=== PATIENT | male | born 1970 | race Caucasian/White ===

== ENCOUNTER 2016-09-01 14:31 | Emergency (ER) | payer MEDICAID ==
[2016-09-01 14:43] VITALS: TEMP 98.4
--- NOTE | 2016-09-01 15:50 | EDPHY ---
H & P Stated Complaint: ETOH/FOUND DOWN Source: Patient, Police, EMS Exam Limitations: Intoxication - Personal History Current Tetanus/Diphtheria Vaccine: Yes Current Tetanus Diphtheria and Acellular Pertussis (TDAP): Yes Tetanus Vaccine Date: ADM 01/28/12 - Medical/Surgical History Hx Asthma: No Hx Chronic Respiratory Disease: No Hx Diabetes: No Hx Cardiac Disease: Yes Hx Renal Disease: No Hx Cirrhosis: No Hx Alcoholism: Yes Hx HIV/AIDS: No Hx Splenectomy or Spleen Trauma: No Other PMH: HX: ETOH WITHDRAWAL SZ, SDH, HTN, brain surgery after tbi - Social History Smoking Status: Current every day smoker Alcohol Use: Heavy Time Seen by Provider: 09/01/16 14:34 HPI/ROS: CHIEF COMPLAINT: ETOH HISTORY OF PRESENT ILLNESS: 46-year-old male presents emergency department with ambulance and police on an arc hold with alcohol intoxication. Patient is a homeless gentleman well known to EMS and the hospital. Patient was found down unconscious lying on the sidewalk behind a liquor store, police were unable to arouse him so called 911. Upon arrival of EMS the patient awoke loud verbal stimuli and painful stimuli, he reports he drank a half a bottle of alcohol. Patient needed 2 people to assist him onto the ambulance gurney. REVIEW OF SYSTEMS: Unable to obtain due to intoxication (Taryn Banks) - Physical Exam Exam: General Appearance: awake, slurred speech, smells of alcohol. Head: superficial abrasion to right jehovah's witness, right forehead and right ear, no obvious scalp contusion or injury Eyes: Pupils equal, round, reactive to light, EOMI, no trauma, no injection. Ears: Clear bilaterally, no perforation, no hemotympanum Nose: Atraumatic, no rhinorrhea, no septal hematoma Neck: cervical spine no deformity or tenderness on palpation Cardiovascular: Heart is regular rate and rhythm without murmur. Good capillary refill all extremities. Chest: Atraumatic, equal bilateral breath sounds. Chest is non-tender to palpation. Gastrointestinal: Soft, non-tender, non-distended. No rebound, guarding, or peritoneal signs. There is no evidence of external or internal trauma. Back:There is no thoracic or lumbar spine or paraspinal tenderness. Extremities: All extremities are non-tender to palpation without obvious deformity. There is full active range of motion of the joints. Neurological: No facial asymmetry, moves all extremities, follows commands Skin: Superficial abrasions to right ear, right side of nose and forehead ( Taryn Banks) Constitutional: Initial Vital Signs Temperature (C) 36.9 C 09/01/16 14:41 Heart Rate 80 09/01/16 14:41 Respiratory Rate 14 09/01/16 14:41 Blood Pressure 123/83 H 09/01/16 14:41 O2 Sat (%) 96 09/01/16 14:41 O2 Delivery Mode Room Air O2 (L/minute) 2 Allergies/Adverse Reactions: No Known Allergies Allergy (Verified 02/03/15 11:02) Home Medications: Medication Instructions Recorded NK [No Known Home Meds] 08/24/15 Medical Decision Making - Diagnostics Imaging: Discussed imaging studies w/ circular stuffer Radiologist ED Course/Re-evaluation: 46-year-old male found down by police brought in on arc hold. He has abrasions dried blood to the right side of his face. CT head and neck were obtained showing no acute abnormality. I serially examined this patient since the patient's arrival here in the emergency department. The patient continues intoxicated and difficult to arouse with slurred speech. We will continue to monitor him until he is able to be discharged to the [facility]. 1800- attempted to ambulate the patient, he is still too unsteady on his feet. Care transferred to Dr. Vega at the end of my shift. (Taryn Banks) Other Provider: This patient was evaluated and managed by the nurse practitioner. I have reviewed the chart and agree with the findings and plan of care as documented. Patient's care was transferred to al at change of shift. At that time he was somnolent but arousable. He was unable to safely ambulate on his own. With time, he awoke, ambulated independently, ate a bit, and was transferred to the [facility]. (Patt Vega) Care Turn Over: Silvia at 1800 (Taryn Banks) - Data Points Medications Given: Discontinued Medications Chlordiazepoxide (Librium 25 Mg Prepack#6) 1 btl TAKEHOME EDNOW ONE Stop: 09/01/16 19:31 Last Admin: 09/01/16 19:42 Dose: 1 btl Departure - Departure Disposition: Home, Routine, Self-Care Clinical Impression: Alcohol intoxication Qualifiers: Complication of substance-induced condition: uncomplicated Qualified Code(s): F10.120 - Alcohol abuse with intoxication, uncomplicated Condition: Good Instructions: Alcohol Intoxication (ED) Additional Instructions: Stop drinking alcohol. Referrals: [facility] [Outside] - As per Instructions
[2016-09-01 17:50] VITALS: RESP 16
[2016-09-01 19:01] VITALS: O2SAT 92
[2016-09-01] MEDS ORDERED: CHLORDIAZEPOXIDE 25MG PREPK#6 BTL TAKEHOME ONE (19:30)
[2016-09-01 19:42] VITALS: BP 133/91; PULSE 97
== END 2016-09-01 19:54 | disposition home or self-care (01) ==
LOC: EDUNIT#
DX: F10.120 Alcohol abuse with intoxication, uncomplicated (principal); I10 Essential (primary) hypertension; F17.200 Nicotine dependence, unspecified, uncomplicated

== ENCOUNTER 2017-12-12 11:30 | Inpatient (IN) | payer MEDICAID, OTHER ==
[2017-12-12] MEDS ORDERED: ONDANSETRON 4 MG/2 ML VIAL ONE (11:54)
[2017-12-12] MEDS ORDERED: LORazepam 2 MG/ML INJ ONE (11:58)
[2017-12-12] MEDS ORDERED: LORazepam 1 MG TAB PO PRN ×2 (12:07→15:03)
[2017-12-12] MEDS ORDERED: NS 1,000 ML IV ONE (12:07)
[2017-12-12] MEDS ORDERED: LORazepam 2 MG/ML INJ IVP PRN (12:07)
--- NOTE | 2017-12-12 12:07 | EDPHY ---
H & P Stated Complaint: from [facility], ETOH withdrawl Time Seen by Provider: 12/12/17 12:06 HPI/ROS: CHIEF COMPLAINT: Alcohol withdrawal HISTORY OF PRESENT ILLNESS: The patient presents to the ED with alcohol withdrawal. He reports symptoms of tremor, vomiting and restlessness. [facility] and began vomiting today which prompted his transfer to the emergency department. The patient denies any drug use. He denies any history of a recent fall or trauma. He does have a remote history of a subdural hematoma. The patient denies significant medical problems outside of his alcohol dependence. He denies any regular prescription medication usage. He denies any symptoms of fever, cough or congestion. He does complain of some mild abdominal discomfort in his epigastrium. REVIEW OF SYSTEMS: A comprehensive 10 point review of systems is otherwise negative aside from elements mentioned in the history of present illness. Source: Patient Exam Limitations: No limitations - Personal History Current Tetanus/Diphtheria Vaccine: Yes Current Tetanus Diphtheria and Acellular Pertussis (TDAP): Yes Tetanus Vaccine Date: ADM 01/28/12 - Medical/Surgical History Hx Asthma: No Hx Chronic Respiratory Disease: No Hx Diabetes: No Hx Cardiac Disease: Yes Hx Renal Disease: No Hx Cirrhosis: No Hx Alcoholism: Yes Hx HIV/AIDS: No Hx Splenectomy or Spleen Trauma: No Other PMH: HX: ETOH WITHDRAWAL SZ, SDH, HTN, brain surgery after tbi - Social History Smoking Status: Current every day smoker - Physical Exam Exam: General Appearance: Alert, no distress Eyes: Pupils equal and round no pallor or injection ENT, Mouth: Mucous membranes moist Respiratory: There are no retractions, lungs are clear to auscultation Cardiovascular: Regular rate and rhythm Gastrointestinal: Minimal epigastric tenderness to palpation Neurological: A&O, normal motor function, normal sensory exam, normal cranial nerves Skin: Warm and dry, no rashes Musculoskeletal: Neck is supple nontender Extremities: symmetrical, full range of motion Psychiatric: Patient is oriented X 3, there is no agitation Constitutional: Initial Vital Signs Temperature (C) 36.6 C 12/12/17 11:34 Heart Rate 94 12/12/17 11:34 Respiratory Rate 24 H 12/12/17 11:34 Blood Pressure 187/136 H 12/12/17 11:34 O2 Sat (%) 96 12/12/17 11:34 O2 Delivery Mode Room Air Allergies/Adverse Reactions: No Known Allergies Allergy (Verified 12/12/17 11:34) Home Medications: Medication Instructions Recorded NK [No Known Home Meds] 08/24/15 Medical Decision Making ED Course/Re-evaluation: The patient presents the ED with symptoms of alcohol withdrawal from the [facility]. The patient's vital signs are stable. He has minimal epigastric tenderness on exam. The patient had an IV established. His initial see while was 8 on my evaluation. He received 2 mg of Ativan. He received several L of fluid. He received IV Zofran. I re-evaluated the patient at 2:00 p.m.. He was sleeping however when aroused developed tremor, tachycardia and diaphoresis. The patient is given additional 2 mg dose of Ativan. Patient will require admission to the hospital for a CIWA score of 6. Consultation was made with the hospitalist service. The patient will be admitted by Dr. Matta. Differential Diagnosis: Differential diagnosis considered includes alcohol withdrawal seizure, dehydration, metabolic abnormality, pancreatitis - Data Points Laboratory Results: Laboratory Results 12/12/17 11:55 12/12/17 11:55 12/12/17 12/12/17 11:55 11:55 WBC 7.55 10^3/uL 10^3/uL (3.80-9.50) RBC 5.68 10^6/uL 10^6/uL (4.40-6.38) Hgb 16.7 g/dL g/dL (13.7-17.5) Hct 49.2 % % (40.0-51.0) MCV 86.6 fL fL (81.5-99.8) MCH 29.4 pg pg (27.9-34.1) MCHC 33.9 g/dL g/dL (32.4-36.7) RDW 14.0 % % (11.5-15.2) Plt Count 128 10^3/uL L 10^3/uL (150-400) MPV 9.6 fL fL (8.7-11.7) Neut % (Auto) 76.7 % H % (39.3-74.2) Lymph % (Auto) 13.9 % L % (15.0-45.0) Teller % (Auto) 7.4 % % (4.5-13.0) Eos % (Auto) 1.3 % % (0.6-7.6) Baso % (Auto) 0.4 % % (0.3-1.7) Nucleat RBC Rel Count 0.0 % % (0.0-0.2) Absolute Neuts (auto) 5.79 10^3/uL 10^3/uL (1.70-6.50) Absolute Lymphs (auto) 1.05 10^3/uL 10^3/uL (1.00-3.00) Absolute Monos (auto) 0.56 10^3/uL 10^3/uL (0.30-0.80) Absolute Eos (auto) 0.10 10^3/uL 10^3/uL (0.03-0.40) Absolute Basos (auto) 0.03 10^3/uL 10^3/uL (0.02-0.10) Absolute Nucleated RBC 0.00 10^3/uL 10^3/uL (0-0.01) Immature Gran % 0.3 % % (0.0-1.1) Immature Gran # 0.02 10^3/uL 10^3/uL (0.00-0.10) Sodium 141 mEq/L mEq/L (135-145) Potassium 4.2 mEq/L mEq/L (3.3-5.0) Chloride 103 mEq/L mEq/L (97-110) Carbon Dioxide 24 mEq/l mEq/l (22-31) Anion Gap 14 mEq/L mEq/L (8-16) BUN 9 mg/dL mg/dL (7-23) Creatinine 0.6 mg/dL L mg/dL (0.7-1.3) Estimated GFR > 60 Glucose 86 mg/dL mg/dL (70-100) Calcium 8.8 mg/dL mg/dL (8.5-10.4) Total Bilirubin 1.2 mg/dL mg/dL (0.1-1.4) Conjugated Bilirubin 0.1 mg/dL mg/dL (0.0-0.5) Unconjugated Bilirubin 1.1 mg/dL mg/dL (0.0-1.1) AST 63 IU/L H IU/L (17-59) ALT 37 IU/L IU/L (21-72) Alkaline Phosphatase 100 IU/L IU/L (38-126) Total Protein 7.2 g/dL g/dL (6.3-8.2) Albumin 4.4 g/dL g/dL (3.5-5.0) Lipase 157 IU/L IU/L (23-300) Medications Given: Lorazepam (Ativan Injection) 0 mg IVP Q1H PRN; Protocol PRN Reason: Alcohol Withdrawal w/IV access Stop: 12/13/17 00:07 Last Admin: 12/12/17 12:05 Dose: 2 mg Discontinued Medications Sodium Chloride (Ns) 1,000 mls @ 0 mls/hr IV EDNOW ONE; Wide Open PRN Reason: Protocol Stop: 12/12/17 12:08 Last Admin: 12/12/17 12:05 Dose: 1,000 mls Departure - Departure Disposition: [facility] Inpatient Acute Clinical Impression: Alcohol withdrawal syndrome Condition: Fair Referrals: NONE *PRIMARY CARE P,. [Primary Care Provider] - As per Instructions
[2017-12-12 12:22] LABS: PLATELET COUNT 128 10^3/uL (150-400)
[2017-12-12] MEDS ORDERED: LORazepam 2 MG/ML INJ IVP ONE (14:18)
--- NOTE | 2017-12-12 14:31 | CPEKG ---
Test Reason : OPEN Blood Pressure : / mmHG Vent. Rate : 076 BPM Atrial Rate : 075 BPM P-R Int : 166 ms QRS Dur : 092 ms QT Int : 431 ms P-R-T Axes : 056 002 034 degrees QTc Int : 485 ms Sinus rhythm Confirmed by Neil Merchant ([id number]) on 12/12/2017 2:31:23 PM Referred By: Confirmed By:Neil Merchant
[2017-12-12] MEDS ORDERED: PROTOCOL MAGNESIUM 1 DOSE IV PRN (15:02)
[2017-12-12] MEDS ORDERED: PROTOCOL POTASSIUM 1 DOSE MISC PRN (15:02)
[2017-12-12] MEDS ORDERED: MAGNESIUM SULF 2 GM/WATER 50 ML IV ONE (15:02)
[2017-12-12] MEDS ORDERED: FLUMAZENIL 0.5 MG/5 ML MDV IVP PRN (15:03)
[2017-12-12] MEDS ORDERED: chlordiazePOXIDE 25 MG CAP PO PRN (15:33)
--- NOTE | 2017-12-12 15:41 | PDGENHP ---
History and Physical - Chief Complaint ETOH WD - History of Present Illness The pt has ETOH WD. he has a hx of heavy daily ETOH use (whisky). He has symptoms of tremor, vomiting and restlessness. [facility] and began vomiting today which prompted his transfer to the emergency department. The patient denies any drug use. He denies any history of a recent fall or trauma. He does have a remote history of a subdural hematoma. The patient denies significant medical problems outside of his alcohol dependence. He denies any regular prescription medication usage. He denies any symptoms of fever, cough or congestion. He does complain of some mild abdominal discomfort in his epigastrium. PMH: HX: ETOH WITHDRAWAL SZ, SDH, HTN, brain surgery after tbi Soc Hx: tobacco use daily, daily ETOH. denies drug use FM hx: non contributory History Information - Allergies/Home Medication List Allergies/Adverse Reactions: No Known Allergies Allergy (Verified 12/12/17 11:34) Home Medications: NK [No Known Home Meds] 08/24/15 [Last Taken Unknown] I have personally reviewed and updated: medical history, social history - Social History Smoking Status: Current every day smoker Review of Systems Review of Systems: ROS: 10pt was reviewed & negative except for what was stated in HPI & below Physical Exam Physical Exam: Temp Pulse Resp BP Pulse Ox 37.1 C 71 18 158/96 H 94 12/12/17 15:24 12/12/17 15:24 12/12/17 15:24 12/12/17 15:24 12/12/17 15:24 Constitutional: no apparent distress Eyes: PERRL Ears, Nose, Mouth, Throat: dry mucous membranes Cardiovascular: regular rate and rhythym, No edema Respiratory: no respiratory distress, no rales or rhonchi, reduced air movement Gastrointestinal: normoactive bowel sounds, soft, non-tender abdomen Skin: warm Musculoskeletal: full muscle strength Neurologic: AAOx3 Psychiatric: interacting appropriately, not anxious, not encephalopathic Lymph, Heme, Immunologic: No petechiae Lab Data & Imaging Review 12/12/17 11:55 12/12/17 11:55 WBC 7.55 10^3/uL (3.80-9.50) 12/12/17 11:55 RBC 5.68 10^6/uL (4.40-6.38) 12/12/17 11:55 Hgb 16.7 g/dL (13.7-17.5) 12/12/17 11:55 Hct 49.2 % (40.0-51.0) 12/12/17 11:55 MCV 86.6 fL (81.5-99.8) 12/12/17 11:55 MCH 29.4 pg (27.9-34.1) 12/12/17 11:55 MCHC 33.9 g/dL (32.4-36.7) 12/12/17 11:55 RDW 14.0 % (11.5-15.2) 12/12/17 11:55 Plt Count 128 10^3/uL (150-400) L 12/12/17 11:55 MPV 9.6 fL (8.7-11.7) 12/12/17 11:55 Neut % (Auto) 76.7 % (39.3-74.2) H 12/12/17 11:55 Lymph % (Auto) 13.9 % (15.0-45.0) L 12/12/17 11:55 Nelson % (Auto) 7.4 % (4.5-13.0) 12/12/17 11:55 Eos % (Auto) 1.3 % (0.6-7.6) 12/12/17 11:55 Baso % (Auto) 0.4 % (0.3-1.7) 12/12/17 11:55 Nucleat RBC Rel Count 0.0 % (0.0-0.2) 12/12/17 11:55 Absolute Neuts (auto) 5.79 10^3/uL (1.70-6.50) 12/12/17 11:55 Absolute Lymphs (auto) 1.05 10^3/uL (1.00-3.00) 12/12/17 11:55 Absolute Monos (auto) 0.56 10^3/uL (0.30-0.80) 12/12/17 11:55 Absolute Eos (auto) 0.10 10^3/uL (0.03-0.40) 12/12/17 11:55 Absolute Basos (auto) 0.03 10^3/uL (0.02-0.10) 12/12/17 11:55 Absolute Nucleated RBC 0.00 10^3/uL (0-0.01) 12/12/17 11:55 Immature Gran % 0.3 % (0.0-1.1) 12/12/17 11:55 Immature Gran # 0.02 10^3/uL (0.00-0.10) 12/12/17 11:55 Sodium 141 mEq/L (135-145) 12/12/17 11:55 Potassium 4.2 mEq/L (3.3-5.0) 12/12/17 11:55 Chloride 103 mEq/L (97-110) 12/12/17 11:55 Carbon Dioxide 24 mEq/l (22-31) 12/12/17 11:55 Anion Gap 14 mEq/L (8-16) 12/12/17 11:55 BUN 9 mg/dL (7-23) 12/12/17 11:55 Creatinine 0.6 mg/dL (0.7-1.3) L 12/12/17 11:55 Estimated GFR > 60 12/12/17 11:55 Glucose 86 mg/dL (70-100) 12/12/17 11:55 Calcium 8.8 mg/dL (8.5-10.4) 12/12/17 11:55 Magnesium 1.4 mg/dL (1.6-2.3) L 12/12/17 14:26 Total Bilirubin 1.2 mg/dL (0.1-1.4) 12/12/17 11:55 Conjugated Bilirubin 0.1 mg/dL (0.0-0.5) 12/12/17 11:55 Unconjugated Bilirubin 1.1 mg/dL (0.0-1.1) 12/12/17 11:55 AST 63 IU/L (17-59) H 12/12/17 11:55 ALT 37 IU/L (21-72) 12/12/17 11:55 Alkaline Phosphatase 100 IU/L (38-126) 12/12/17 11:55 Total Protein 7.2 g/dL (6.3-8.2) 12/12/17 11:55 Albumin 4.4 g/dL (3.5-5.0) 12/12/17 11:55 Lipase 157 IU/L (23-300) 12/12/17 11:55 Assessment & Plan Assessment: #Alcoholism with acute ETOH WD -He has a hx of seizure during past WD, although last seizure was several years ago -He is actively in WD -Given his heavy Whisky intake (half gallon per day), will start Librium 50 TID + CIWA protocol. 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
[2017-12-12] MEDS: NS W/ 20 KCl/L 1,000 ML IV SCH (17:08)
[2017-12-12] MEDS ORDERED: POTASSIUM CL 10 MEQ TAB PO ONE (19:18)
[2017-12-12] MEDS: LORazepam 2 MG/ML INJ IVP PRN ×2 (19:42→23:39)
[2017-12-13] MEDS: NS W/ 20 KCl/L 1,000 ML IV SCH (03:55)
[2017-12-13] MEDS: LORazepam 2 MG/ML INJ IVP PRN ×3 (03:55→19:55)
[2017-12-13 05:51] LABS: PLATELET COUNT 91 10^3/uL (150-400)
[2017-12-13] MEDS ORDERED: POTASSIUM CL 10 MEQ TAB PO ONE ×2 (07:52→20:25)
[2017-12-13] MEDS ORDERED: MAGNESIUM SULF 1 GM/DEXTROSE 100 ML IV ONE (07:53)
[2017-12-13] MEDS ORDERED: THIAMINE HCL 500 MG in NS 100 ML IV SCH (09:00)
--- NOTE | 2017-12-13 09:50 | PDMN ---
Medical Necessity Medical necessity: [facility] [id number] Substance Related Disorders: 47 y/o in acute ETOH w/ d w/ hx of seizures, pt is hypertensive, thrombocytopenic (plt 91K), mag 1.4, CIWA protocol initiated, tremors noted (see CIWA scores reported by nursing), frequent IV Ativan admin, IV fluids started, IP status anticipate>2MN for ongoing monitoring and treatment. Hx etoh w/d w/ seizures, SDH, HTN, brain surgery after tbi.
[2017-12-13] MEDS ORDERED: chlordiazePOXIDE 25 MG CAP PO PRN (10:46)
[2017-12-13] MEDS: GABAPENTIN 100 MG CAP PO SCH ×2 (11:43→21:05)
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
[2017-12-13] MEDS ORDERED: NICOTINE POLACRILEX 2 MG GUM B PRN (16:04)
[2017-12-13] MEDS ORDERED: NICOTINE 21 MG/24 HR PATCH TD SCH (16:15)
--- NOTE | 2017-12-13 16:25 | ASMTCMCOM ---
CM Note CM Note Notes: Pt is a homeless gentleman who was detoxing at the [facility] when he was sent to the hospital for vomiting. Per RN, pt is deciding whether he wants to quit drinking. CM to follow up with resources if he wants assistance. Pt is otherwise independent. DC Plan: Independent Date Signed: 12/13/2017 04:25 PM Electronically Signed By:Carine Bryan RN
[2017-12-13 19:30] VITALS: BP 156/98
--- NOTE | 2017-12-14 11:27 | GDS ---
DISCHARGE DIAGNOSES: 1. Alcohol withdrawal. 2. Nicotine dependence. 3. Stressors. 4. Dehydration. 5. Hypomagnesemia. 6. 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 HISTORY OF PRESENT ILLNESS: Briefly, Roe is a 47-year-old man who drinks whiskey daily. He was at the [facility], and he was having vomiting, tremors, and restlessness. He was admitted and placed on the [facility] protocol. During my evaluation of him yesterday, on December 13, the patient was not actively withdrawing, but was on scheduled Librium. He was alert and oriented. He was unclear if he wanted to quit drinking. He thinks he would likely start drinking as soon as he was discharged. He appreciated that he had some time to think about it. During the night he left prior to anyone seen him. At this time, he went against medical advice. He was able to ambulate well and was alert and oriented at the time of discharge. /[id number]/MODL MTDD
[2017-12-15] MEDS ORDERED: THIAMINE HCL 100 MG TAB PO SCH (15:03)
== END 2017-12-13 22:20 | disposition left against medical advice (07) | DRG 770 ==
LOC: F3E 15:16
PROVIDERS: ADMIT Family Medicine; ATTEND Family Medicine
DX: F10.239 Alcohol dependence with withdrawal, unspecified (principal); E83.42 Hypomagnesemia; E86.0 Dehydration; F17.200 Nicotine dependence, unspecified, uncomplicated; I10 Essential (primary) hypertension; Z87.820 Personal history of traumatic brain injury
CPT/HCPCS: 96374; 97161-GP; 97530-GP; J2060; J2405; J3411; J3475

== ENCOUNTER 2017-12-15 21:44 | Emergency (ER) | payer MEDICAID ==
--- NOTE | 2017-12-15 21:48 | EDPHY ---
H & P Time Seen by Provider: 12/15/17 21:45 HPI/ROS: Chief Complaint: Alcohol intoxication HPI: Patient found intoxicated behind [employer]. Patient admits to drinking large amounts of alcohol earlier today. No nausea or vomiting. Patient was [facility] last night but is not welcome back because he reported we down water on some body. Denies any chest pain. No cough. No abdominal pain. No fevers or chills. He is currently homeless. ROS: 10 systems were reviewed and were negative except those elements noted in the HPI. PMH: Chronic alcohol abuse Social History: Positive smoking, daily heavy alcohol, homeless Family History: non-contributory Physical Exam: Gen: Awake, Alert, No Distress HEENT: Nose: no rhinorrhea Eyes: PERRLA, EOMI Mouth: Moist mucosa Neck: Supple, no JVD Chest: nontender, lungs clear to auscultation Heart: S1, S2 normal, no murmur Abd: Soft, non-tender, no guarding Back: no CVA tenderness, no midline tenderness Ext: no edema, non-tender Skin: no rash Neuro: CN II-XII intact, Sensation grossly intact, Strength 5/5 in bilateral upper and lower extremities - Personal History Tetanus Vaccine Date: ADM 01/28/12 - Medical/Surgical History Hx Asthma: No Hx Chronic Respiratory Disease: No Hx Diabetes: No Hx Cardiac Disease: Yes Hx Renal Disease: No Hx Cirrhosis: No Hx Alcoholism: Yes Hx HIV/AIDS: No Hx Splenectomy or Spleen Trauma: No Other PMH: HX: ETOH WITHDRAWAL SZ, SDH, HTN, brain surgery after tbi - Social History Smoking Status: Current every day smoker Constitutional: Initial Vital Signs Temperature (C) 36.7 C 12/15/17 21:49 Heart Rate 100 12/15/17 21:49 Respiratory Rate 18 12/15/17 21:49 Blood Pressure 132/79 H 12/15/17 21:49 O2 Sat (%) 94 12/15/17 21:49 O2 Delivery Mode Room Air Allergies/Adverse Reactions: No Known Allergies Allergy (Verified 12/12/17 11:34) Home Medications: Medication Instructions Recorded NK [No Known Home Meds] 08/24/15 Medical Decision Making ED Course/Re-evaluation: Patient is now awake and appropriate. Ambulating unassisted to the bathroom. No current complaints. Patient is tolerating oral fluids. Patient is ready for discharge with sober ride. Departure - Departure Disposition: Home, Routine, Self-Care Clinical Impression: Alcohol intoxication Condition: Good Instructions: Alcohol Intoxication (ED) Referrals: NONE *PRIMARY CARE P,. [Primary Care Provider] - As per Instructions
[2017-12-15 23:52] VITALS: BP 142/89
== END 2017-12-16 00:01 | disposition home or self-care (01) ==
LOC: EDUNIT#
DX: F10.929 Alcohol use, unspecified with intoxication, unspecified (principal); F17.200 Nicotine dependence, unspecified, uncomplicated; Z59.0 Homelessness; I10 Essential (primary) hypertension